=== PATIENT | female | born 1990 | race Caucasian/White ===

== ENCOUNTER 2016-11-22 08:27 | Emergency (ER) | payer SELFPAY ==
[~2016-11-22] VITALS: Ht 157.5 cm; Wt 64.8 kg
[2016-11-22 09:03] LABS: PH 5 (5-8); URINE APPEARANCE Clear; URINE BACTERIA Rare /hpf; URINE BILIRUBIN Negative (NEGATIVE); URINE BLOOD 2+ (NEGATIVE); URINE COLOR Yellow; URINE GLUCOSE Negative (NEGATIVE); URINE KETONE Negative (NEGATIVE); URINE RBC 0-2 /hpf; URINE UROBILINOGEN Negative (NEGATIVE); URINE WBC 0-2 /hpf
[2016-11-22 09:29] LABS: BASO % 0.5 % (0.0-2.0); EOS # 0.1 (0.0-0.7); EOS % 0.6 % (0-4.0); GRAN % 74.3 % (42.2-75.2); HEMATOCRIT 41.8 % (37.0-47.0); HEMOGLOBIN 13.3 g/dl (12.5-16.0); LYMPH # 1.6 (1.2-3.4); LYMPH % 20.2 % (20.0-51.0); MEAN CELL VOLUME 87 fl (80.0-100.0); MEAN CORPUSCULAR HEMOGLOBIN 28 pg (27.0-31.0); MEAN CORPUSCULAR HGB CONC 32 g/dl (33.0-37.0); MEAN PLATELET VOLUME 11.6 fl (7.4-10.4); MONO # 0.3 (0.1-0.6); MONO % 4.2 % (1.7-9.3); PLATELET COUNT 236 K/mm3 (130-400); RED BLOOD COUNT 4.81 M/mm3 (4.10-5.30); REDCELL DISTRIBUTION WIDTH-CV 15.9 % (11.5-14.5)
[2016-11-22 09:53] LABS: ADJUSTED CALCIUM 8.9 mg/dL (8.4-10.2); ALBUMIN 4.6 gm/dL (3.5-5.0); BILIRUBIN,TOTAL 0.5 mg/dL (0.0-1.0); CALCIUM 9.4 mg/dL (8.4-10.2); CREATININE, serum 0.64 mg/dL (0.52-1.25); POTASSIUM 4.5 mmol/L (3.4-5.0); TOTAL PROTEIN 7.8 gm/dL (6.4-8.2)
[2016-11-22] MEDS ORDERED: MACROBID 1100 MG/CAP PO (10:09)
[2016-11-22] MEDS ORDERED: ZOFRAN ODT4 MG PO (10:35)
[2016-11-22 10:46] VITALS: BP 116/62; PULSE 95; TEMP 97.9
== END 2016-11-22 10:46 | disposition home or self-care (01) ==
LOC: COL.ER 08:27
PROVIDERS: Family Medicine
DX: N30.01 Acute cystitis with hematuria (principal); E86.0 Dehydration; R11.2 Nausea with vomiting, unspecified; Z90.5 Acquired absence of kidney
CPT/HCPCS: J1885; J2405; J7030

== ENCOUNTER 2016-12-21 11:04 | Emergency (ER) | payer SELFPAY ==
[~2016-12-21] VITALS: Ht 157.5 cm; Wt 60.0 kg
[~2016-12-21 11:04] MED LIST: MACROBID 1100 MG/CAP PO; ZOFRAN ODT4 MG PO
[2016-12-21 11:13] VITALS: BP 121/81; TEMP 98.1
[2016-12-21] MEDS ORDERED: FLEXERIL5 MG PO (11:17)
[2016-12-21 12:00] LABS: PH 6 (5-8); URINE APPEARANCE Clear; URINE BACTERIA None Seen /hpf; URINE BILIRUBIN Negative (NEGATIVE); URINE BLOOD Negative (NEGATIVE); URINE COLOR Yellow; URINE GLUCOSE Negative (NEGATIVE); URINE KETONE Trace (NEGATIVE); URINE RBC 0-2 /hpf; URINE UROBILINOGEN Negative (NEGATIVE); URINE WBC 0-2 /hpf
[2016-12-21] MEDS ORDERED: NORCO 325 MG-51 TAB PO (12:52)
[2016-12-21 13:03] VITALS: PULSE 79
== END 2016-12-21 13:03 | disposition home or self-care (01) ==
LOC: COL.ER 11:04
PROVIDERS: Nurse Practitioner
DX: R10.31 Right lower quadrant pain (principal); Y04.2XXA Assault by strike against or bumped into by another person, initial encounter
CPT/HCPCS: J1885; J3360